=== PATIENT | male | born 1970 | race Caucasian/White ===

== ENCOUNTER 2017-06-07 12:11 | Emergency (ER) | payer MEDICARE, OTHER ==
[~2017-06-07] VITALS: Ht 185.4 cm; Wt 181.9 kg
[~2017-06-07 12:11] MED LIST: CARBAMAZEPINE400 MG PO; CEPH500 PO; DULO30 PO; FINA5 PO; FURO40 PO; GABA300 PO; HYDCHL25 PO; Hytrin2 MG; K-Dur10 MEQ PO; LISI20 PO; MELO7.5; METF500C PO; NAPR500
[2017-06-07] MEDS ORDERED: DULO30 PO (12:25)
[2017-06-07] MEDS ORDERED: TOPI50 PO (12:26)
[2017-06-07 12:37] LABS: BASOPHILS ABSOLUTE AUTO 0.05 K/mm3 (0.00-0.23); BASOPHILS PERCENT AUTO 1 % (0-2); EOSINOPHILS ABSOLUTE AUTO 0.17 K/mm3 (0.00-0.68); EOSINOPHILS PERCENT AUTO 2 % (0-6); Hematocrit 40.1 % (37.0-53.0); Hemoglobin 14.1 g/dL (13.5-17.5); IMMATURE GRAN ABSOLUTE AUTO 0.04 K/mm3 (0.00-0.10); IMMATURE GRAN PERCENT AUTO 1 % (0-1); LYMPHOCYTES ABSOLUTE AUTO 1.79 K/mm3 (0.84-5.20); LYMPHOCYTES PERCENT AUTO 22 % (21-46); MONOCYTES ABSOLUTE AUTO 0.67 K/mm3 (0.16-1.47); MONOCYTES PERCENT AUTO 8 % (4-13); Mean Corpuscular HGB 31.2 pg (26.0-34.0); Mean Corpuscular HGB Conc 35.2 g/dL (31.5-36.5); Mean Corpuscular Volume 89 fL (80-100); Mean Platelet Volume 9.6 fL (9.1-12.4); NEUTROPHILS PERCENT AUTO 67 % (41-73); Platelet Count 262 K/mm3 (150-400); RDW Coefficient Variation 12.2 % (11.7-14.2); RDW Standard Deviation 39.6 fL (35.1-46.3); Red Blood Cell Count 4.52 M/mm3 (4.30-5.90); White Blood Cell Count 8.22 K/mm3 (4.00-11.30)
[2017-06-07 12:59] LABS: Alanine Aminotransfer (ALT/SGP 28 U/L (12-78); Albumin, Blood 3.7 g/dL (3.4-5.0); Albumin/Globulin Ratio 0.9 (0.8-1.8); Alk Phos 102 U/L (50-136); Anion Gap 8 mmol/L (6-16); Aspartate Aminotrans (AST/SGOT 37 U/L (12-37); Bilirubin, Total 0.3 mg/dL (0.1-1.0); Blood Urea Nitrogen 11 mg/dL (8-24); Bun/Creatinine Ratio 14.4 (12.0-20.0); CO2, Blood 25 mmol/L (21-32); Calcium, Blood 8.9 mg/dL (8.5-10.1); Chloride, Blood 96 mmol/L (98-108); Creatinine, Blood 0.77 mg/dL (0.60-1.20); Globulin, Blood 3.9 g/dL (2.2-4.0); Glomerular Filtration Rate >60 (60-); Glucose, Blood 130 mg/dL (70-99); Potassium, Blood 3.5 mmol/L (3.5-5.5); Sodium, Blood 129 mmol/L (136-145); Total Protein, Blood 7.6 g/dL (6.4-8.2); Troponin I <0.015 ng/mL (0.000-0.040)
== END 2017-06-07 14:10 | disposition home or self-care (01) ==
LOC: ER 12:11
PROVIDERS: Physician Assistant
DX: R07.89 Other chest pain (principal); Z79.899 Other long term (current) drug therapy; Z79.84 Long term (current) use of oral hypoglycemic drugs; G40.909 Epilepsy, unspecified, not intractable, without status epilepticus; E11.9 Type 2 diabetes mellitus without complications; I10 Essential (primary) hypertension; F17.210 Nicotine dependence, cigarettes, uncomplicated; F17.220 Nicotine dependence, chewing tobacco, uncomplicated
CPT/HCPCS: 36415; 71046; 80053; 83880; 84484; 85025; 93005; 93010; 99284

== ENCOUNTER → 2017-09-01 | Outpatient (CLI) | payer MEDICARE, OTHER ==
[~2017-09-01] MED LIST changes: +TOPI50 PO
[2017-09-01 13:51] LABS: BASOPHILS ABSOLUTE AUTO 0.05 K/mm3 (0.00-0.23); BASOPHILS PERCENT AUTO 1 % (0-2); EOSINOPHILS ABSOLUTE AUTO 0.13 K/mm3 (0.00-0.68); EOSINOPHILS PERCENT AUTO 2 % (0-6); Hematocrit 41.9 % (37.0-53.0); Hemoglobin 15.2 g/dL (13.5-17.5); IMMATURE GRAN ABSOLUTE AUTO 0.04 K/mm3 (0.00-0.10); IMMATURE GRAN PERCENT AUTO 1 % (0-1); LYMPHOCYTES ABSOLUTE AUTO 1.89 K/mm3 (0.84-5.20); LYMPHOCYTES PERCENT AUTO 24 % (21-46); MONOCYTES ABSOLUTE AUTO 0.78 K/mm3 (0.16-1.47); MONOCYTES PERCENT AUTO 10 % (4-13); Mean Corpuscular HGB 31.6 pg (26.0-34.0); Mean Corpuscular HGB Conc 36.3 g/dL (31.5-36.5); Mean Corpuscular Volume 87 fL (80-100); Mean Platelet Volume 9.8 fL (9.1-12.4); NEUTROPHILS ABSOLUTE AUTO 5.08 K/mm3 (1.96-9.15); NEUTROPHILS PERCENT AUTO 64 % (41-73); Platelet Count 268 K/mm3 (150-400); RDW Coefficient Variation 11.9 % (11.7-14.2); RDW Standard Deviation 38.5 fL (35.1-46.3); Red Blood Cell Count 4.81 M/mm3 (4.30-5.90); White Blood Cell Count 7.97 K/mm3 (4.00-11.30)
[2017-09-01 14:00] LABS: Alanine Aminotransfer (ALT/SGP 37 U/L (12-78); Albumin, Blood 3.8 g/dL (3.4-5.0); Albumin/Globulin Ratio 0.9 (0.8-1.8); Alk Phos 115 U/L (40-126); Anion Gap 6 mmol/L (6-16); Aspartate Aminotrans (AST/SGOT 62 U/L (12-37); Bilirubin, Total 0.3 mg/dL (0.1-1.0); Blood Urea Nitrogen 9 mg/dL (8-24); Bun/Creatinine Ratio 7.6 (12.0-20.0); CO2, Blood 30 mmol/L (21-32); Calcium, Blood 9.5 mg/dL (8.5-10.1); Chloride, Blood 92 mmol/L (98-108); Creatinine, Blood 1.18 mg/dL (0.60-1.20); Globulin, Blood 4.1 g/dL (2.2-4.0); Glomerular Filtration Rate >60 (60-); Glucose, Blood 99 mg/dL (70-99); Potassium, Blood 3.6 mmol/L (3.5-5.5); Sodium, Blood 128 mmol/L (136-145); Total Protein, Blood 7.9 g/dL (6.4-8.2)
== END | disposition home or self-care (01) ==
LOC: LAB EV 13:41 → LAB SHORT 13:41
PROVIDERS: Physician Assistant
DX: R05 Cough (principal)
CPT/HCPCS: 80053; 83880; 85025

== ENCOUNTER 2017-11-05 19:00 | Observation (INO) | payer MEDICARE, OTHER ==
[~2017-11-05] VITALS: Ht 185.4 cm; Wt 182.8 kg
[2017-11-05 19:34] LABS: BASOPHILS ABSOLUTE AUTO 0.02 K/mm3 (0.00-0.23); BASOPHILS PERCENT AUTO 0 % (0-2); EOSINOPHILS ABSOLUTE AUTO 0.06 K/mm3 (0.00-0.68); EOSINOPHILS PERCENT AUTO 1 % (0-6); Hematocrit 39.1 % (37.0-53.0); Hemoglobin 14.1 g/dL (13.5-17.5); IMMATURE GRAN ABSOLUTE AUTO 0.06 K/mm3 (0.00-0.10); IMMATURE GRAN PERCENT AUTO 1 % (0-1); LYMPHOCYTES ABSOLUTE AUTO 1.64 K/mm3 (0.84-5.20); LYMPHOCYTES PERCENT AUTO 14 % (21-46); MONOCYTES ABSOLUTE AUTO 1.25 K/mm3 (0.16-1.47); MONOCYTES PERCENT AUTO 11 % (4-13); Mean Corpuscular HGB Conc 36.1 g/dL (31.5-36.5); Mean Corpuscular Volume 89 fL (80-100); Mean Platelet Volume 10.6 fL (9.1-12.4); NEUTROPHILS ABSOLUTE AUTO 8.58 K/mm3 (1.96-9.15); NEUTROPHILS PERCENT AUTO 74 % (41-73); Platelet Count 256 K/mm3 (150-400); RDW Coefficient Variation 12.2 % (11.7-14.2); RDW Standard Deviation 39.7 fL (35.1-46.3); White Blood Cell Count 11.61 K/mm3 (4.00-11.30)
[2017-11-05 19:49] LABS: Alanine Aminotransfer (ALT/SGP 28 U/L (12-78); Albumin, Blood 3.4 g/dL (3.4-5.0); Albumin/Globulin Ratio 0.8 (0.8-1.8); Alk Phos 99 U/L (50-136); Anion Gap 14 mmol/L (6-16); Aspartate Aminotrans (AST/SGOT 36 U/L (12-37); Bilirubin, Total 0.6 mg/dL (0.1-1.0); Blood Urea Nitrogen 12 mg/dL (8-24); Bun/Creatinine Ratio 12.7 (12.0-20.0); CO2, Blood 27 mmol/L (21-32); Calcium, Blood 8.7 mg/dL (8.5-10.1); Chloride, Blood 91 mmol/L (98-108); Creatinine, Blood 0.94 mg/dL (0.60-1.20); Globulin, Blood 4.3 g/dL (2.2-4.0); Glomerular Filtration Rate >60 (60-); Glucose, Blood 103 mg/dL (70-99); Potassium, Blood 3.5 mmol/L (3.5-5.5); Sodium, Blood 132 mmol/L (136-145); Total Protein, Blood 7.7 g/dL (6.4-8.2); Troponin I <0.015 ng/mL (0.000-0.040)
[2017-11-05 21:18] LABS: CPK Creatine Kinase 292 U/L (39-308); Creatine Kinase MB 1.7 ng/mL (0.0-3.6); Creatine Kinase MB Index 0.6 (0.0-4.0)
[2017-11-06 07:52] LABS: Hematocrit 36.7 % (37.0-53.0); Hemoglobin 12.8 g/dL (13.5-17.5); Mean Corpuscular HGB 31.3 pg (26.0-34.0); Mean Corpuscular HGB Conc 34.9 g/dL (31.5-36.5); Mean Corpuscular Volume 90 fL (80-100); Mean Platelet Volume 10.4 fL (9.1-12.4); Platelet Count 215 K/mm3 (150-400); RDW Coefficient Variation 12.4 % (11.7-14.2); RDW Standard Deviation 40.6 fL (35.1-46.3); Red Blood Cell Count 4.09 M/mm3 (4.30-5.90); White Blood Cell Count 11.17 K/mm3 (4.00-11.30)
[2017-11-07 08:26] LABS: Anion Gap 10 mmol/L (6-16); Blood Urea Nitrogen 12 mg/dL (8-24); Bun/Creatinine Ratio 15.3 (12.0-20.0); CO2, Blood 27 mmol/L (21-32); Calcium, Blood 8.6 mg/dL (8.5-10.1); Chloride, Blood 91 mmol/L (98-108); Creatinine, Blood 0.78 mg/dL (0.60-1.20); Glomerular Filtration Rate >60 (60-); Glucose, Blood 134 mg/dL (70-99); Sodium, Blood 128 mmol/L (136-145)
[2017-11-07] MEDS ORDERED: CEPACOL SORE T1 EACH MM (15:21)
[2017-11-07] MEDS ORDERED: Advil200 M1 PO (15:24)
[2017-11-07] MEDS ORDERED: COLCRYS0.6 MG PO (15:25)
== END 2017-11-07 16:38 | disposition home or self-care (01) ==
LOC: ER 19:00 → MEDS 19:01 → ENPENDDIS 11-07 15:16 → MEDS 11-07 16:38
PROVIDERS: Internal Medicine; Nurse Practitioner Acute Care
DX: R07.9 Chest pain, unspecified (principal); I31.9 Disease of pericardium, unspecified; G47.33 Obstructive sleep apnea (adult) (pediatric); G40.909 Epilepsy, unspecified, not intractable, without status epilepticus; E11.9 Type 2 diabetes mellitus without complications; I10 Essential (primary) hypertension; E78.5 Hyperlipidemia, unspecified; G43.909 Migraine, unspecified, not intractable, without status migrainosus; E66.9 Obesity, unspecified; F17.210 Nicotine dependence, cigarettes, uncomplicated; J02.9 Acute pharyngitis, unspecified; F32.9 Major depressive disorder, single episode, unspecified; E87.1 Hypo-osmolality and hyponatremia; Z99.89 Dependence on other enabling machines and devices; Z68.42 Body mass index [BMI] 45.0-49.9, adult
CPT/HCPCS: 36415; 71046; 71275; 74175; 80048; 80053; 82550; 82553; 82947; 83880; 84484; 85025; 85027; 93005; 93010; 93306; 94640; 94660; 94760; 94762; 96372; 99285-25; G0378; J1650; Q9967

== ENCOUNTER 2020-01-23 14:37 | Inpatient (IN) | payer OTHER ==
[~2020-01-23] VITALS: Ht 185.4 cm; Wt 177.9 kg
[~2020-01-23 14:37] MED LIST changes: +Advil200 M1 PO; -CARBAMAZEPINE400 MG PO; +CEPACOL SORE T1 EACH MM; +COLCRYS0.6 MG PO; +Crestor20 MG PO; +METF500 PO; -METF500C PO; +POTA10T PO; +TOPI100 PO; -TOPI50 PO; +Tegretol Xr400 MG PO
[2020-01-23 15:00] LABS: Chloride (POC) 94 mmol/L (98-108); Creatinine (POC) 5.3 mg/dL (0.8-1.3); Glucose (ISTAT POC) 103 mg/dL (70-99); Hemoglobin (POC) 14.6 g/dL (13.5-17.5); Potassium (POC) 3.5 mmol/L (3.5-5.5); Sodium (POC) 131 mmol/L (135-148); Total CO2 (POC) 19 mmol/L (21-32)
[2020-01-23 15:17] LABS: BASOPHILS ABSOLUTE AUTO 0.05 K/mm3 (0.00-0.23); BASOPHILS PERCENT AUTO 0 % (0-2); EOSINOPHILS ABSOLUTE AUTO 0.24 K/mm3 (0.00-0.68); EOSINOPHILS PERCENT AUTO 2 % (0-6); Hematocrit 43.1 % (37.0-53.0); Hemoglobin 14.6 g/dL (13.5-17.5); IMMATURE GRAN ABSOLUTE AUTO 0.06 K/mm3 (0.00-0.10); IMMATURE GRAN PERCENT AUTO 1 % (0-1); LYMPHOCYTES ABSOLUTE AUTO 1.43 K/mm3 (0.84-5.20); LYMPHOCYTES PERCENT AUTO 11 % (21-46); MONOCYTES ABSOLUTE AUTO 1.18 K/mm3 (0.16-1.47); MONOCYTES PERCENT AUTO 9 % (4-13); Mean Corpuscular HGB 31.1 pg (26.0-34.0); Mean Corpuscular HGB Conc 33.9 g/dL (31.5-36.5); Mean Corpuscular Volume 92 fL (80-100); Mean Platelet Volume 10.4 fL (9.1-12.4); NEUTROPHILS ABSOLUTE AUTO 10.27 K/mm3 (1.96-9.15); NEUTROPHILS PERCENT AUTO 78 % (41-73); Platelet Count 296 K/mm3 (150-400); RDW Coefficient Variation 12.1 % (11.7-14.2); RDW Standard Deviation 40.9 fL (35.1-46.3); Red Blood Cell Count 4.69 M/mm3 (4.30-5.90); White Blood Cell Count 13.23 K/mm3 (4.00-11.30)
[2020-01-23] MEDS ORDERED: HYDCHL25 PO (15:20)
[2020-01-23 15:42] LABS: Alanine Aminotransfer (ALT/SGP 24 U/L (12-78); Albumin, Blood 3.9 g/dL (3.4-5.0); Albumin/Globulin Ratio 1.1 (0.8-1.8); Alk Phos 91 U/L (50-136); Anion Gap 15 mmol/L (6-16); Aspartate Aminotrans (AST/SGOT 20 U/L (12-37); Bilirubin, Total 0.3 mg/dL (0.1-1.0); Blood Urea Nitrogen 30 mg/dL (8-24); Bun/Creatinine Ratio 5.6 (12.0-20.0); CO2, Blood 22 mmol/L (21-32); Calcium, Blood 9.2 mg/dL (8.5-10.1); Chloride, Blood 96 mmol/L (98-108); Creatinine, Blood 5.32 mg/dL (0.60-1.20); Ethanol (Alcohol), Blood, Med <3 mg/dL; Globulin, Blood 3.5 g/dL (2.2-4.0); Glomerular Filtration Rate 12 (60-); Glucose, Blood 95 mg/dL (70-99); Potassium, Blood 3.5 mmol/L (3.5-5.5); Sodium, Blood 133 mmol/L (136-145); Total Protein, Blood 7.4 g/dL (6.4-8.2)
[2020-01-23 15:45] LABS: Base Excess Venous -6.1 mmol/L; Bicarbonate Venous 19.4 mmol/L (24.0-30.0); PCO2 Venous 44.7 mmHg (38-42); PO2 Venous 64.5 mmHg (38-42); pH Blood Venous 7.28 (7.34-7.37)
[2020-01-23] MEDS ORDERED: Vitamin B-12100 MCG PO (17:19)
[2020-01-23 18:57] LABS: Source, Urine Clean Catch
[2020-01-23 19:02] LABS: Blood, Urine 4+ (Neg); Glucose Qualitative, Urine Neg (Neg); Ketones, Urine 1+ (Neg); Leukocyte Esterase, Urine 1+ (Neg); Nitrite, Urine Neg (Neg); Protein, Urine 2+ (Neg); Specific Gravity, Urine 1.025 (1.003-1.022); Urobilinogen, Urine 1+ (Normal)
[2020-01-23 19:21] LABS: Appearance, Urine Hazy (Clear); Bilirubin, Urine 2+ (Neg); Color, Urine Amber (P-Yellow)
[2020-01-23 19:22] LABS: Amorphous Light (0-Heavy); Bacteria Few /hpf; Mucus Light (0-Heavy); Red Blood Cells, Urine 25-50 /hpf (0-2); Squamous Epithelial Cells Few /hpf (Few); U Amphetamine Screen Not Detected; U Barbituate Screen Not Detected; U Benzodiazapine Screen Not Detected; U Buprenorphine Screen Not Detected; U Cannabinoids Screen Not Detected; U Cocaine Screen Not Detected; U Methadone Screen Not Detected; U Methamphetamine Screen Not Detected; U Opiates Screen Not Detected; U Oxycodone Screen Not Detected; U Phencyclidine Screen Not Detected; U Propoxyphene Screen Not Detected
[2020-01-23 19:43] LABS: Creatine Kinase MB 5.2 ng/mL (0.0-3.6); Creatine Kinase MB Index 0.8 (0.0-4.0)
--- NOTE | 2020-01-24 04:45 | NUR ---
SKIN PILER SUMMARY PT ADMITTED FROM ED. PT A&OX4, ABLE TO MAKE NEEDS KNOWN. PLEASANT AND COOPERATIVE TO CARE. MEDICATED FOR PAIN X1 THIS SHIFT. NO C/O CP, SOB, OR N&V. ON TELE SR 92 BPM PVCs. 1 PERSON STANDBY ASSIST. BED AT LOWEST POSITION. CALL LIGHT WITHIN REACH.
[2020-01-24 05:20] LABS: BASOPHILS ABSOLUTE AUTO 0.04 K/mm3 (0.00-0.23); BASOPHILS PERCENT AUTO 0 % (0-2); EOSINOPHILS ABSOLUTE AUTO 0.34 K/mm3 (0.00-0.68); EOSINOPHILS PERCENT AUTO 4 % (0-6); Hematocrit 38.7 % (37.0-53.0); IMMATURE GRAN ABSOLUTE AUTO 0.03 K/mm3 (0.00-0.10); IMMATURE GRAN PERCENT AUTO 0 % (0-1); LYMPHOCYTES ABSOLUTE AUTO 2.57 K/mm3 (0.84-5.20); LYMPHOCYTES PERCENT AUTO 27 % (21-46); MONOCYTES ABSOLUTE AUTO 0.89 K/mm3 (0.16-1.47); MONOCYTES PERCENT AUTO 9 % (4-13); Mean Corpuscular HGB 30.8 pg (26.0-34.0); Mean Corpuscular HGB Conc 33.6 g/dL (31.5-36.5); Mean Corpuscular Volume 92 fL (80-100); Mean Platelet Volume 10.4 fL (9.1-12.4); NEUTROPHILS ABSOLUTE AUTO 5.79 K/mm3 (1.96-9.15); NEUTROPHILS PERCENT AUTO 60 % (41-73); Platelet Count 238 K/mm3 (150-400); RDW Coefficient Variation 11.9 % (11.7-14.2); RDW Standard Deviation 40.1 fL (35.1-46.3); Red Blood Cell Count 4.22 M/mm3 (4.30-5.90); White Blood Cell Count 9.66 K/mm3 (4.00-11.30)
[2020-01-24 05:59] LABS: Albumin, Blood 3.4 g/dL (3.4-5.0); Anion Gap 11 mmol/L (6-16); Blood Urea Nitrogen 27 mg/dL (8-24); Bun/Creatinine Ratio 8.6 (12.0-20.0); CO2, Blood 23 mmol/L (21-32); Calcium, Blood 8.1 mg/dL (8.5-10.1); Chloride, Blood 97 mmol/L (98-108); Creatinine, Blood 3.14 mg/dL (0.60-1.20); Glomerular Filtration Rate 22 (60-); Glucose, Blood 85 mg/dL (70-99); Magnesium, Blood 2.2 mg/dL (1.6-2.4); Phosphorus, Blood 3.8 mg/dL (2.5-4.9); Potassium, Blood 3.4 mmol/L (3.5-5.5); Sodium, Blood 131 mmol/L (136-145)
--- NOTE | 2020-01-24 14:43 | NUR ---
Positive blood cultures Received report from [facility] in Microbiology RE postive blood cultures with gram positive cocci in clusters. This information was given to primary RN Titi @ 2007.
--- NOTE | 2020-01-24 17:36 | NUR ---
SHIFT SUMMARY PATIENT ALERT AND ORIENTED THIS SHIFT. PATIENT SLOW TO RESPOND WITH MILD SLURRING OF WORDS. PATIENT ALTERNATED SITTING UP ON THE BEDSIDE AND LAYING IN BED. PATIENT WORKED WITH PT THIS SHIFT AND AMBULATED IN THE HALLWAY. PATIENT SHOWERED THIS SHIFT WITH BUSINESS ANALYTICS FACULTY MEMBER ASSISTANCE. PATIENT CURRENTLY LAYING IN BED WATCHING TELEVISION.
--- NOTE | 2020-01-25 04:09 | NUR ---
SHIFT SUMMARY PATIENT HAD NO ACUTE CHANGES OBSERVED. AXOX 3 AND ONE ASSIST TO BSC WITH GAIT BELT. CBG 126. PIVS REMAIN INTACT. NS INFUSING AT 75mL/HR. IV ABX INFUSED. AUTO BODY DETAILER REPORTS NSR 73. HERNANDEZ PATENT AND DRAINING TO GRAVITY. VSS/AFEBRILE. DENIES PAIN, SOB, AND N/V. USES CPAP AT NIGHT. WATCHED TV T/O SHIFT. CALL LIGHT IN REACH. BED IN LOWEST POSITION. WILL CONTINUE TO MONITOR UNTIL DAY SHIFT NURSE ASSUMES CARE.
[2020-01-25 04:43] LABS: BASOPHILS ABSOLUTE AUTO 0.04 K/mm3 (0.00-0.23); BASOPHILS PERCENT AUTO 1 % (0-2); EOSINOPHILS ABSOLUTE AUTO 0.42 K/mm3 (0.00-0.68); EOSINOPHILS PERCENT AUTO 6 % (0-6); Hematocrit 35.1 % (37.0-53.0); IMMATURE GRAN ABSOLUTE AUTO 0.02 K/mm3 (0.00-0.10); IMMATURE GRAN PERCENT AUTO 0 % (0-1); LYMPHOCYTES ABSOLUTE AUTO 2.05 K/mm3 (0.84-5.20); LYMPHOCYTES PERCENT AUTO 27 % (21-46); MONOCYTES ABSOLUTE AUTO 0.73 K/mm3 (0.16-1.47); MONOCYTES PERCENT AUTO 10 % (4-13); Mean Corpuscular HGB 31.2 pg (26.0-34.0); Mean Corpuscular HGB Conc 34.2 g/dL (31.5-36.5); Mean Corpuscular Volume 91 fL (80-100); NEUTROPHILS ABSOLUTE AUTO 4.26 K/mm3 (1.96-9.15); NEUTROPHILS PERCENT AUTO 57 % (41-73); Platelet Count 208 K/mm3 (150-400); RDW Coefficient Variation 11.9 % (11.7-14.2); RDW Standard Deviation 39.8 fL (35.1-46.3); Red Blood Cell Count 3.85 M/mm3 (4.30-5.90); White Blood Cell Count 7.52 K/mm3 (4.00-11.30)
[2020-01-25 05:13] LABS: Albumin, Blood 3.1 g/dL (3.4-5.0); Anion Gap 6 mmol/L (6-16); Blood Urea Nitrogen 18 mg/dL (8-24); Bun/Creatinine Ratio 14.9 (12.0-20.0); CO2, Blood 27 mmol/L (21-32); CPK Creatine Kinase 450 U/L (39-308); Calcium, Blood 8.4 mg/dL (8.5-10.1); Chloride, Blood 100 mmol/L (98-108); Creatinine, Blood 1.21 mg/dL (0.60-1.20); Free Thyroxine 1.21 ng/dL (0.70-1.60); Glomerular Filtration Rate >60 (60-); Glucose, Blood 94 mg/dL (70-99); Magnesium, Blood 2.1 mg/dL (1.6-2.4); Phosphorus, Blood 3.4 mg/dL (2.5-4.9); Potassium, Blood 3.7 mmol/L (3.5-5.5); Sodium, Blood 133 mmol/L (136-145); Thyroid Stimulating Hormone 0.006 uIU/mL (0.360-4.800); Thyroxine (T4) 8.6 ug/dL (4.5-12.1); Triiodothyronine, Free 2.78 pg/mL (2.18-3.98)
[2020-01-25 05:27] LABS: Creatine Kinase MB 2.5 ng/mL (0.0-3.6); Creatine Kinase MB Index 0.6 (0.0-4.0)
--- NOTE | 2020-01-25 18:39 | NUR ---
SHIFT SUMMARY: NO ACUTE CHANGES TO REPORT THIS SHIFT. PT A&O; CALM AND COOPERATIVE WITH CARE. NO C/O PAIN THIS SHIFT. TELE IN PLACE; SR c 1DEG HB @ 29 PER HIGH ENERGY FORMING EQUIPMENT OPERATOR. HOME CPAP @ BEDSIDE. HERNANDEZ IN PLACE R/T RETENTION; PATENT & DRAINING; NEPHROLOGY (DR LISA) FOLLOWING. IV ABX CONTINUING. POSS D/C MONDAY IN AM. WCTM.
--- NOTE | 2020-01-25 23:28 | NUR ---
HOSPITALIST DR DAHL NOTIFIED LOST IV ACCESS AND ANTICIPATE DC TOMORROW. DR DAHL ORDERED NO IV ACCESS AND TO DC TELEMETRY. PRESSURE VESSEL INSPECTOR NOTIFIED.
--- NOTE | 2020-01-26 03:46 | NUR ---
AUTHORIZATION NURSE SUMMARY PT LOST IV ACCESS EARLY IN THE SHIFT AND AFTER MULTIPLE ATTEMPTS FROM MULTIPLE NURSES THE PROVIDER WAS CONTACTED. THE DECESION WAS MADE TO DC THE IV ANTIBIOTICS SINCE THE PT IS LIKELY DISCHARGING THIS AM W PO ANTIBIOTICS AND A NO IV ACCESS WAS ORDERED. PT HAS HAD NO DIZZINESS AND WAS ABLE TO AMBULATE 300 FEET W FWW AND GAIT BELT. NO NEW S/S THIS SHIFT. WCTM.
[2020-01-26 04:46] LABS: BASOPHILS ABSOLUTE AUTO 0.03 K/mm3 (0.00-0.23); BASOPHILS PERCENT AUTO 0 % (0-2); EOSINOPHILS ABSOLUTE AUTO 0.49 K/mm3 (0.00-0.68); EOSINOPHILS PERCENT AUTO 7 % (0-6); Hematocrit 35.3 % (37.0-53.0); Hemoglobin 11.9 g/dL (13.5-17.5); IMMATURE GRAN ABSOLUTE AUTO 0.02 K/mm3 (0.00-0.10); IMMATURE GRAN PERCENT AUTO 0 % (0-1); LYMPHOCYTES ABSOLUTE AUTO 2.13 K/mm3 (0.84-5.20); LYMPHOCYTES PERCENT AUTO 28 % (21-46); MONOCYTES ABSOLUTE AUTO 0.68 K/mm3 (0.16-1.47); MONOCYTES PERCENT AUTO 9 % (4-13); Mean Corpuscular HGB 30.7 pg (26.0-34.0); Mean Corpuscular HGB Conc 33.7 g/dL (31.5-36.5); Mean Corpuscular Volume 91 fL (80-100); Mean Platelet Volume 10.1 fL (9.1-12.4); NEUTROPHILS ABSOLUTE AUTO 4.24 K/mm3 (1.96-9.15); NEUTROPHILS PERCENT AUTO 56 % (41-73); Platelet Count 213 K/mm3 (150-400); RDW Coefficient Variation 11.8 % (11.7-14.2); RDW Standard Deviation 39.7 fL (35.1-46.3); Red Blood Cell Count 3.88 M/mm3 (4.30-5.90); White Blood Cell Count 7.59 K/mm3 (4.00-11.30)
[2020-01-26 09:49] LABS: Albumin, Blood 3.1 g/dL (3.4-5.0); Anion Gap 7 mmol/L (6-16); Blood Urea Nitrogen 13 mg/dL (8-24); Bun/Creatinine Ratio 14.2 (12.0-20.0); CO2, Blood 28 mmol/L (21-32); Chloride, Blood 99 mmol/L (98-108); Creatinine, Blood 0.92 mg/dL (0.60-1.20); Glomerular Filtration Rate >60 (60-); Glucose, Blood 82 mg/dL (70-99); Phosphorus, Blood 3.1 mg/dL (2.5-4.9); Potassium, Blood 3.8 mmol/L (3.5-5.5); Sodium, Blood 134 mmol/L (136-145)
[2020-01-26] MEDS ORDERED: LACT PO (12:29)
[2020-01-26] MEDS ORDERED: ACET325 PO (12:29)
[2020-01-26] MEDS ORDERED: AMOCLA875 PO (12:30)
--- NOTE | 2020-01-26 19:06 | NUR ---
PATIENT DISCHARGE: PATIENT DISCHARGED TO HOME / XFR TO HOME HEALTH THIS SHIFT. MEDICATION RECONCILIATION COMPLETED; MED LIST FAXED TO [facility]. DISCHARGE EDUCATION COMPLETED WITH PATIENT AND FAMILY. PATIENT TRANSPORTED TO EXIT BY [facility] STAFF WITH WHEELCHAIR AT 1815. PATIENT DEPARTED [facility] VIA PRIVATE AUTO.
== END 2020-01-26 18:14 | disposition home or self-care (01) | DRG 683 ==
LOC: ER 14:37 → MEDS 22:07
PROVIDERS: Emergency Medicine; Family Medicine; Internal Medicine Nephrology; Physician Assistant; ADMIT Internal Medicine
DX: N17.0 Acute kidney failure with tubular necrosis (principal); M62.82 Rhabdomyolysis; E87.2 Acidosis; E87.1 Hypo-osmolality and hyponatremia; E66.2 Morbid (severe) obesity with alveolar hypoventilation; Z68.43 Body mass index [BMI] 50.0-59.9, adult; N18.30 Chronic kidney disease, stage 3 unspecified; I95.9 Hypotension, unspecified; E86.1 Hypovolemia; J01.20 Acute ethmoidal sinusitis, unspecified; J32.2 Chronic ethmoidal sinusitis; E11.22 Type 2 diabetes mellitus with diabetic chronic kidney disease; I12.9 Hypertensive chronic kidney disease with stage 1 through stage 4 chronic kidney disease, or unspecified chronic kidney disease; M19.011 Primary osteoarthritis, right shoulder; M50.30 Other cervical disc degeneration, unspecified cervical region; D63.1 Anemia in chronic kidney disease; G40.909 Epilepsy, unspecified, not intractable, without status epilepticus; E87.6 Hypokalemia; E78.5 Hyperlipidemia, unspecified; E86.0 Dehydration; R80.9 Proteinuria, unspecified; R31.29 Other microscopic hematuria; F17.210 Nicotine dependence, cigarettes, uncomplicated; Z79.84 Long term (current) use of oral hypoglycemic drugs
CPT/HCPCS: 36415; 51702; 70450; 70486; 71045; 72125; 73030; 76770; 80047; 80053; 80069; 81001; 82550; 82553; 82803; 82947; 83036; 83605; 83735; 84436; 84439; 84443; 84481; 84484; 85014; 85025; 87040; 87086; 93005; 93010; 94660; 94760; 96360; 96361; 97110; 97112; 97162; 97165; 97530; 97535; 99285-25; A9270; C9113; G0480; J0696; J1644; J2543; J3480; J7030; J7060; J7120; Q2038

== ENCOUNTER 2020-09-17 08:21 | Inpatient (IN) | payer OTHER ==
[~2020-09-17] VITALS: Ht 185.4 cm; Wt 137.5 kg
[~2020-09-17 08:21] MED LIST changes: +ACET325 PO; +AMOCLA875 PO; +LACT PO; +Vitamin B-12100 MCG PO
[2020-09-17 09:09] LABS: BASOPHILS ABSOLUTE AUTO 0.03 K/mm3 (0.00-0.23); BASOPHILS PERCENT AUTO 0 % (0-2); EOSINOPHILS PERCENT AUTO 2 % (0-6); Hemoglobin 13.5 g/dL (13.5-17.5); IMMATURE GRAN ABSOLUTE AUTO 0.01 K/mm3 (0.00-0.10); IMMATURE GRAN PERCENT AUTO 0 % (0-1); LYMPHOCYTES PERCENT AUTO 24 % (21-46); MONOCYTES ABSOLUTE AUTO 0.75 K/mm3 (0.16-1.47); MONOCYTES PERCENT AUTO 8 % (4-13); Mean Corpuscular HGB 29.7 pg (26.0-34.0); Mean Corpuscular HGB Conc 32.9 g/dL (31.5-36.5); Mean Corpuscular Volume 90 fL (80-100); Mean Platelet Volume 11.7 fL (9.1-12.4); NEUTROPHILS ABSOLUTE AUTO 5.81 K/mm3 (1.96-9.15); NEUTROPHILS PERCENT AUTO 65 % (41-73); Platelet Count 217 K/mm3 (150-400); RDW Coefficient Variation 12.2 % (11.7-14.2); RDW Standard Deviation 40.1 fL (35.1-46.3); Red Blood Cell Count 4.55 M/mm3 (4.30-5.90)
[2020-09-17 09:31] LABS: Alanine Aminotransfer (ALT/SGP 19 U/L (12-78); Albumin, Blood 3.5 g/dL (3.4-5.0); Alk Phos 118 U/L (50-136); Anion Gap 13 mmol/L (6-16); Aspartate Aminotrans (AST/SGOT 15 U/L (12-37); Bilirubin, Total 0.4 mg/dL (0.1-1.0); Blood Urea Nitrogen 39 mg/dL (8-24); Bun/Creatinine Ratio 14.8 (12.0-20.0); CO2, Blood 21 mmol/L (21-32); Calcium, Blood 8.9 mg/dL (8.5-10.1); Chloride, Blood 102 mmol/L (98-108); Creatinine, Blood 2.63 mg/dL (0.60-1.20); Free Thyroxine 1.49 ng/dL (0.70-1.60); Globulin, Blood 3.6 g/dL (2.2-4.0); Glomerular Filtration Rate 27 (60-); Glucose, Blood 60 mg/dL (70-99); Potassium, Blood 4.3 mmol/L (3.5-5.5); Sodium, Blood 136 mmol/L (136-145); Total Protein, Blood 7.1 g/dL (6.4-8.2); Troponin I <0.015 ng/mL (0.000-0.040)
[2020-09-17 09:34] LABS: Thyroid Stimulating Hormone <0.005 uIU/mL (0.360-4.800)
[2020-09-17] MEDS ORDERED: ATENOLOL25 MG PO (11:37)
[2020-09-17] MEDS ORDERED: FUROSEMIDE40 MG PO (11:37)
[2020-09-17] MEDS ORDERED: Prinivil10 MG PO (11:38)
[2020-09-17] MEDS ORDERED: POTA10T PO (14:38)
[2020-09-17] MEDS ORDERED: METO25ER PO (14:40)
[2020-09-17 15:15] LABS: Source, Urine Clean Catch
[2020-09-17 16:18] LABS: Appearance, Urine Clear (Clear); Bilirubin, Urine Neg (Neg); Blood, Urine Neg (Neg); Color, Urine Yellow (P-Yellow); Glucose Qualitative, Urine Neg (Neg); Ketones, Urine 1+ (Neg); Leukocyte Esterase, Urine Neg (Neg); Nitrite, Urine Neg (Neg); Protein, Urine Neg (Neg); Urobilinogen, Urine NORM (Normal)
--- NOTE | 2020-09-17 17:20 | NUR ---
SHIFT SUMMARY PATIENT ARRIVED FROM ED VIA GURNEY, ABLE TO SELF TRANSFER TO BED. PT DENIES DIZZINESS. PT IS ALERT AND ORIENTED, COOPERATIVE WITH CARE. VSS, PT ON ROOM AIR AND TOLERATING WELL. FLUIDS RUNNING PER EMAR. PT ENDORSED SOME PAIN IN L. ANKLE, ASSISTED WITH REPOSITIONING TO PT SATISFACTION. PT WAS ABLE TO VOID AFTER ARRIVAL TO UNIT, URINE SAMPLE SENT TO LAB.
[2020-09-18 04:29] LABS: Albumin, Blood 3.2 g/dL (3.4-5.0); Bilirubin, Total 0.4 mg/dL (0.1-1.0); Bun/Creatinine Ratio 22.2 (12.0-20.0); Calcium, Blood 8.4 mg/dL (8.5-10.1); Creatinine, Blood 1.71 mg/dL (0.60-1.20); Globulin, Blood 3.2 g/dL (2.2-4.0); Potassium, Blood 3.9 mmol/L (3.5-5.5); Total Protein, Blood 6.4 g/dL (6.4-8.2)
--- NOTE | 2020-09-18 05:09 | NUR ---
SHIFT SUMMARY NO ACUTE CHANGES THIS SHIFT. VSS. AXO. IN SR. BP STABLE. USED CPAP VERY BRIEFLY LAST NIGHT BUT OTHERWISE STAYED ON RA. FLUIDS INFUSING T/O SHIFT. PT WALKED AROUND UNIT A FEW TIMES WITH THIS NURSE. PT DENIED DIZZINESS OR FEELING LIKE PASSING OUT. PT VOIDING IN URINAL. PT HAS BEEN SNACKING ALL NIGHT LONG. EFFORTS TO PROVIDE SUGARFREE OR NO SUGAR ADDED FOR PT. PT AWARE OF BLOOD SUGARS. OTHERWISE, PT RESTED OFF AND ON.
[2020-09-18] MEDS ORDERED: Inderal40 MG PO (12:41)
[2020-09-18] MEDS ORDERED: CARB200ER PO (12:42)
[2020-09-18] MEDS ORDERED: Acetaminophen650 M1 PO (12:43)
[2020-09-18] MEDS ORDERED: NICO21TP TOP (12:43)
[2020-09-18] MEDS ORDERED: METHI10 PO (12:43)
--- NOTE | 2020-09-18 13:01 | NUR ---
DISCHARGE PT WAS DISCHARGED TODAY AT APPROXIMATEY 1258. PT WAS ESCORTED OUT WITH IS SON AND WAS ABLE TO WALK OUT INDEPENDENTLY. PT WAS STABLE ON DISCHARGE, ON RA. IV AND TELE WAS REMOVED. PT AND SON WERE GIVEN INSTRUCTIONS REGARDING NEW MEDICATIONS, FOLLOW UP APPOINTMENTS AND WAS ENCOURAGED TO INCREASE WATER INTAKE.
--- NOTE | 2020-09-18 14:15 | NUR ---
Echocardiogram completed.
== END 2020-09-18 12:54 | disposition home or self-care (01) | DRG 684 ==
LOC: ER 08:21 → ERHOLD 12:47 → PCU 13:51
PROVIDERS: Emergency Medicine; Nurse Practitioner Acute Care; ADMIT Family Medicine
DX: N17.9 Acute kidney failure, unspecified (principal); G40.909 Epilepsy, unspecified, not intractable, without status epilepticus; I10 Essential (primary) hypertension; E78.5 Hyperlipidemia, unspecified; G43.909 Migraine, unspecified, not intractable, without status migrainosus; G47.33 Obstructive sleep apnea (adult) (pediatric); F17.210 Nicotine dependence, cigarettes, uncomplicated; E86.0 Dehydration; E66.01 Morbid (severe) obesity due to excess calories; I95.1 Orthostatic hypotension; E11.649 Type 2 diabetes mellitus with hypoglycemia without coma; E05.00 Thyrotoxicosis with diffuse goiter without thyrotoxic crisis or storm; Z98.890 Other specified postprocedural states; Z68.38 Body mass index [BMI] 38.0-38.9, adult; Z99.89 Dependence on other enabling machines and devices
CPT/HCPCS: 36415; 71045; 73610; 80053; 81003; 82533; 82550; 82947; 83735; 83880; 84100; 84439; 84443; 84481; 84482; 84484; 85025; 93005; 93010; 93306; 94660; 94762; 96374; 99285-25; A9270; J1100; J1644; J7030; J7120

== ENCOUNTER → 2022-07-27 | Outpatient (CLI) | payer OTHER ==
[~2022-07-27] MED LIST changes: +ATENOLOL25 MG PO; +Acetaminophen650 M1 PO; +CARB200ER PO; +FUROSEMIDE40 MG PO; +Inderal40 MG PO; +METHI10 PO; +METO25ER PO; +NICO21TP TOP; +Prinivil10 MG PO
== END | disposition home or self-care (01) ==
LOC: LAB SHORT 07:41 → LAB 07:41 → PLD 07:41
DX: B35.1 Tinea unguium (principal)
CPT/HCPCS: 88305; 88312

== ENCOUNTER 2025-02-22 19:06 | Emergency (ER) | payer OTHER ==
[~2025-02-22] VITALS: Ht 185.4 cm; Wt 166.5 kg
[2025-02-22 20:02] LABS: BASOPHILS ABSOLUTE AUTO 0.02 K/mm3 (0.00-0.23); BASOPHILS PERCENT AUTO 0 % (0-2); EOSINOPHILS ABSOLUTE AUTO 0.33 K/mm3 (0.00-0.68); EOSINOPHILS PERCENT AUTO 6 % (0-6); Hematocrit 30.8 % (37.0-53.0); Hemoglobin 9.7 g/dL (13.5-17.5); IMMATURE GRAN ABSOLUTE AUTO 0.01 K/mm3 (0.00-0.10); IMMATURE GRAN PERCENT AUTO 0 % (0-1); LYMPHOCYTES ABSOLUTE AUTO 1.46 K/mm3 (0.84-5.20); LYMPHOCYTES PERCENT AUTO 24 % (21-46); MONOCYTES ABSOLUTE AUTO 0.68 K/mm3 (0.16-1.47); MONOCYTES PERCENT AUTO 11 % (4-13); Mean Corpuscular HGB Conc 31.5 g/dL (31.5-36.5); Mean Corpuscular Volume 77 fL (80-100); NEUTROPHILS ABSOLUTE AUTO 3.49 K/mm3 (1.96-9.15); NEUTROPHILS PERCENT AUTO 58 % (41-73); NRBC ABSOLUTE 0.00 K/mm3 (0.00-0.02); NRBC Auto 0.0 /100 WBC (0.0-0.2); Platelet Count 233 K/mm3 (150-400); RDW Coefficient Variation 15.3 % (11.7-14.2); RDW Standard Deviation 42.5 fL (35.1-46.3)
[2025-02-22 20:21] LABS: Alanine Aminotransfer (ALT/SGP 17.0 U/L (12-78); Albumin, Blood 2.8 g/dL (3.4-5.0); Albumin/Globulin Ratio 0.8 (0.8-1.8); Anion Gap 8.0 mmol/L (3-11); Aspartate Aminotrans (AST/SGOT 18.0 U/L (12-37); Bilirubin, Total 0.2 mg/dL (0.1-1.0); Blood Urea Nitrogen 8.0 mg/dL (8-24); CO2, Blood 28.0 mmol/L (21-32); Calcium, Blood 8.5 mg/dL (8.5-10.1); Chloride, Blood 90.0 mmol/L (98-108); Creatinine, Blood 0.99 mg/dL (0.60-1.20); Globulin, Blood 3.7 g/dL (2.2-4.0); Glucose, Blood 86.0 mg/dL (70-99); Potassium, Blood 4.2 mmol/L (3.5-5.5); Sodium, Blood 122.0 mmol/L (136-145); Total Protein, Blood 6.5 g/dL (6.4-8.2)
[2025-02-22 20:53] VITALS: BP 158/95
== END 2025-02-22 20:53 | disposition home or self-care (01) ==
LOC: ER 19:06
PROVIDERS: Emergency Medicine
DX: K62.5 Hemorrhage of anus and rectum (principal); E11.9 Type 2 diabetes mellitus without complications; I10 Essential (primary) hypertension; E78.5 Hyperlipidemia, unspecified; G47.33 Obstructive sleep apnea (adult) (pediatric); F17.210 Nicotine dependence, cigarettes, uncomplicated; Z79.84 Long term (current) use of oral hypoglycemic drugs; Z79.899 Other long term (current) drug therapy
CPT/HCPCS: 80053; 82272; 85025; 86850; 86900; 86901; 93005; 93010; 99283-25